=== PATIENT | female | born 1965 | race Caucasian/White ===

== ENCOUNTER 2019-09-24 09:24 | Emergency (ER) | payer OTHER ==
--- OUTSIDE RECORDS SUMMARY | 2019-09-24 09:26 | XMS REPORT ---
:1965 [facility] Address [address] [place] [address] Dr. Farnsworth [address] [place] [id number] Care Team Providers Name Role Phone Unavailable Unavailable Unavailable Problems This patient has no known problems. Allergies, Adverse Reactions, Alerts This patient has no known allergies or adverse reactions. Medications This patient has no known medications.
--- NOTE | 2019-09-24 09:57 | ER ---
Nurse's Notes [facility] Name: Adrianne Recinos Age: 54 yrs Sex: Female : 1965 Arrival Date: 09/24/2019 Time: 09:27 Bed 17 Private MD: Diagnosis: Pain in left knee Presentation: 09/24 09:39 Presenting complaint: Patient states: Intermittent left knee pain x 1 year, worsening jl7 on Sunday. Transition of care: patient was not received from another setting of care. Onset of symptoms was September 2018. Risk Assessment: Do you want to hurt yourself or someone else? Patient reports no desire to harm self or others. Initial Sepsis Screen: Does the patient meet any 2 criteria? No. Patient's initial sepsis screen is negative. Does the patient have a suspected source of infection? No. Patient's initial sepsis screen is negative. Care prior to arrival: None. 09:39 Method Of Arrival: Ambulatory jl7 09:39 Acuity: MODESTA 4 jl7 Triage Assessment: 09:43 General: Appears in no apparent distress. uncomfortable, Behavior is calm, cooperative, jl7 appropriate for age. Pain: Complains of pain in left knee Pain currently is 7 out of 10 on a pain scale. Neuro: Level of Consciousness is awake, alert, obeys commands, Oriented to person, place, time, situation. Cardiovascular: Patient's skin is warm and dry. Respiratory: Airway is patent Respiratory effort is even, unlabored, Respiratory pattern is regular, symmetrical. Derm: Skin is pink, warm \T\ dry. Historical: - Allergies: 09:43 No Known Allergies; jl7 - Home Meds: 09:43 glimepiride 2 mg Oral tab [Active]; Metformin Oral [Active]; cyclobenzaprine 10 mg Oral jl7 tab [Active]; sulindac 200 mg Oral tab [Active]; bisoprolol-hydrochlorothiazide 5-6.25 mg oral tab [Active]; quetiapine 300 mg oral tab [Active]; gabapentin 400 mg oral cap [Active]; Viibryd 20 mg oral tab [Active]; - PMHx: 09:43 Depression; Mood disorder; Diabetes - NIDDM; Hypertension; neuropathy; Arthritis; Back jl7 pain; - PSHx: 09:43 Hysterectomy; jl7 - Immunization history:: Adult Immunizations unknown. - Coronavirus screen:: The patient has NOT traveled to [place] in the past 14 days. Proceed with normal triage process as indicated. - Social history:: Smoking status: Patient reports the use of cigarette tobacco products, denies chronic smoking, but will smoke occasionally. - Ebola Screening: : No symptoms or risks identified at this time. Screenin:46 Abuse screen: Denies threats or abuse. Denies injuries from another. Nutritional jl7 screening: No deficits noted. Tuberculosis screening: No symptoms or risk factors identified. Fall Risk None identified. Assessment: 09:46 General: See triage assessment. jl7 Vital Signs: 09:43 BP 150 / 93; Pulse 82; Resp 17 S; Temp 97.8; Pulse Ox 98% ; Weight 68.04 kg (R); Height jl7 5 ft. 4 in. (162.56 cm) (R); Pain 7/10; 09:43 Body Mass Index 25.75 (68.04 kg, 162.56 cm) jl7 ED Course: 09:27 Patient arrived in ED. fj1 09:28 Jordyn Villeda FNP-C is [facility]. kb 09:28 Arcadio Coe MD is Attending Physician. kb 09:38 Ethan Pineda, SALLIE is Primary Nurse. jl7 09:40 Triage completed. jl7 09:43 Arm band placed on right wrist. jl7 09:46 Patient has correct armband on for positive identification. Placed in gown. Bed in low jl7 position. Call light in reach. Side rails up X 1. 10:18 No provider procedures requiring assistance completed. Patient did not have IV access iw during this emergency room visit. Administered Medications: No medications were administered Outcome: 09:56 Discharge ordered by MD. kb 10:17 Discharged to home ambulatory. iw 10:17 Condition: good 10:17 Discharge instructions given to patient, Instructed on discharge instructions, follow up and referral plans. Demonstrated understanding of instructions, follow-up care. 10:18 Patient left the ED. iw Signatures: Jordyn Villeda FNP-C FNP-Iva Robert RN RN iw Ethan Pineda RN RN jl7 James, Frank fj
--- NOTE | 2019-09-24 09:58 | EDPHYS ---
Physician Documentation [facility] Name: Adrianne Recinos Age: 54 yrs Sex: Female : 1965 Arrival Date: 09/24/2019 Time: 09:27 Bed 17 Private MD: ED Physician Arcadio Coe HPI: 09/24 10:03 This 54 yrs old Female presents to ER via Ambulatory with complaints of Knee kb Pain. 10:03 The patient presents with pain, that is chronic. The complaints affect the left knee. kb Context: The problem was sustained at work, resulted from a chronic condition, the patient can fully bear weight, the patient is able to ambulate. Onset: The symptoms/episode began/occurred "years ago". Modifying factors: The symptoms are alleviated by nothing. the symptoms are aggravated by nothing. Associated signs and symptoms: The patient has no apparent associated signs or symptoms. Treatment prior to arrival includes: no previous treatment. Severity of symptoms: At their worst the symptoms were mild, in the emergency department the symptoms are unchanged. The patient has experienced similar episodes in the past, chronically. The patient has not recently seen a physician. Pt reports left knee pain that has been gradually getting worse over the last few years. States the pain increases when she twists and sometimes it feels like it locks up or is going to give out. . Historical: - Allergies: : No Known Allergies; jl7 - Home Meds: :43 glimepiride 2 mg Oral tab [Active]; Metformin Oral [Active]; cyclobenzaprine 10 mg Oral jl7 tab [Active]; sulindac 200 mg Oral tab [Active]; bisoprolol-hydrochlorothiazide 5-6.25 mg oral tab [Active]; quetiapine 300 mg oral tab [Active]; gabapentin 400 mg oral cap [Active]; Viibryd 20 mg oral tab [Active]; - PMHx: 09:43 Depression; Mood disorder; Diabetes - NIDDM; Hypertension; neuropathy; Arthritis; Back jl7 pain; - PSHx: 09:43 Hysterectomy; jl7 - Immunization history:: Adult Immunizations unknown. - Coronavirus screen:: The patient has NOT traveled to [place] in the past 14 days. Proceed with normal triage process as indicated. - Social history:: Smoking status: Patient reports the use of cigarette tobacco products, denies chronic smoking, but will smoke occasionally. - Ebola Screening: : No symptoms or risks identified at this time. ROS: 10:03 Constitutional: Negative for fever, chills, and weight loss, ENT: Negative for injury, kb pain, and discharge, Neck: Negative for injury, pain, and swelling, Cardiovascular: Negative for chest pain, palpitations, and edema, Respiratory: Negative for shortness of breath, cough, wheezing, and pleuritic chest pain, Abdomen/GI: Negative for abdominal pain, nausea, vomiting, diarrhea, and constipation, Back: Negative for injury and pain, Skin: Negative for injury, rash, and discoloration, Neuro: Negative for headache, weakness, numbness, tingling, and seizure. 10:03 MS/extremity: Positive for pain. Exam: 10:02 Constitutional: This is a well developed, well nourished patient who is awake, alert, kb and in no acute distress. Head/Face: Normocephalic, atraumatic. Chest/axilla: Normal chest wall appearance and motion. Nontender with no deformity. No lesions are appreciated. Cardiovascular: Regular rate and rhythm with a normal S1 and S2. No gallops, murmurs, or rubs. Normal PMI, no JVD. No pulse deficits. Respiratory: Lungs have equal breath sounds bilaterally, clear to auscultation and percussion. No rales, rhonchi or wheezes noted. No increased work of breathing, no retractions or nasal flaring. Abdomen/GI: Soft, non-tender, with normal bowel sounds. No distension or tympany. No guarding or rebound. No evidence of tenderness throughout. Skin: Warm, dry with normal turgor. Normal color with no rashes, no lesions, and no evidence of cellulitis. Neuro: Awake and alert, GCS 15, oriented to person, place, time, and situation. Cranial nerves II-XII grossly intact. Motor strength 5/5 in all extremities. Sensory grossly intact. Cerebellar exam normal. Normal gait. 10:02 Musculoskeletal/extremity: Extremities: grossly normal except: noted in the left knee: pain, ROM: intact in all extremities, Circulation is intact in all extremities. Sensation intact. Weight bearing: able to fully bear weight. Vital Signs: 09:43 BP 150 / 93; Pulse 82; Resp 17 S; Temp 97.8; Pulse Ox 98% ; Weight 68.04 kg (R); Height jl7 5 ft. 4 in. (162.56 cm) (R); Pain 02/12; 09:43 Body Mass Index 25.75 (68.04 kg, 162.56 cm) jl7 MDM: 09:30 Patient medically screened. kb 09:57 Differential diagnosis: sprain, strain, arthritis. Data reviewed: vital signs, nurses kb notes. Data interpreted: Pulse oximetry: on room air is 98 %. Interpretation: normal. Counseling: I had a detailed discussion with the patient and/or guardian regarding: the historical points, exam findings, and any diagnostic results supporting the discharge/admit diagnosis, the need for outpatient follow up, a orthopedic surgeon, to return to the emergency department if symptoms worsen or persist or if there are any questions or concerns that arise at home. Administered Medications: No medications were administered Disposition: 10:32 Co-signature as Attending Physician, Arcadio Coe MD. rn Disposition: 09/24/19 09:56 Discharged to Home. Impression: Pain in left knee. - Condition is Stable. - Discharge Instructions: Arthritis, [id number], Knee Pain, [id number]-[id number]. - Medication Reconciliation Form, Thank You Letter, Antibiotic Education, Prescription Opioid Use form. - Follow up: Emergency Department; When: As needed; Reason: Worsening of condition. Follow up: Private Physician; When: 2 - 3 days; Reason: Recheck today's complaints, Continuance of care, Re-evaluation by your physician. Signatures: Jordyn Villeda, [employer]ER [employer]-C C[employer]-Ckb Iva Glass RN RN iw Nieto, Roman, MD MD rn Leal, Jahala, RN RN jl7 Corrections: (The following items were deleted from the chart) 10:18 09:56 09/24/2019 09:56 Discharged to Home. Impression: Pain in left knee. Condition is iw Stable. Forms are Medication Reconciliation Form, Thank You Letter, Antibiotic Education, Prescription Opioid Use. Follow up: Emergency Department; When: As needed; Reason: Worsening of condition. Follow up: Private Physician; When: 2 - 3 days; Reason: Recheck today's complaints, Continuance of care, Re-evaluation by your physician. kb
[2019-09-24 10:26] VITALS: BP 150/93; TEMP 97.8; O2SAT 98
== END 2019-09-24 10:18 | disposition home or self-care (01) ==
LOC: ER 09:24
DX: M25.562 Pain in left knee (principal); F17.210 Nicotine dependence, cigarettes, uncomplicated; E11.9 Type 2 diabetes mellitus without complications
CPT/HCPCS: 99281

== ENCOUNTER 2021-09-06 13:00 | Emergency (ER) | payer BC, OTHER ==
[2021-09-06 13:39] LABS: Urine Blood Trace-intact (Negative); Urine Glucose 2+ (Negative); Urine Protein 2+ (Negative); Urine Specific Gravity >=1.030 (1.005-1.030)
[2021-09-06] MEDS ORDERED: ONDANSETRON 4 MG/2 ML VIAL ONE (13:46)
[2021-09-06] MEDS ORDERED: PANTOPRAZOLE 40 MG INJ ONE (13:46)
[2021-09-06] MEDS ORDERED: MAGNES/ALUMIN/SIMET 30ML UCUP ONE (13:46)
[2021-09-06] MEDS ORDERED: LIDOCAINE VISCOUS 2% SOLN 15 ML UDC ONE (13:47)
[2021-09-06] MEDS ORDERED: NA CHLORIDE 0.9% 1,000 ML ONE (13:47)
[2021-09-06 14:07] LABS: Absolute Lymphocytes (CBC) 0.3 K/uL (0.7-4.9); Hematocrit 36.1 % (36.0-45.0); Lymphocytes % 2.1 % (15.3-44.8); MPV 8.2 fL (7.6-11.3); RBC Red Blood Cell Count 4.13 M/uL (3.86-4.86)
[2021-09-06 14:25] LABS: ALT/SGPT 19 U/L (12-78); AST/SGOT 12 U/L (15-37); Albumin 3.8 g/dL (3.4-5.0); Alkaline Phosphatase 76 U/L (45-117); BUN Blood Urea Nitrogen 31 mg/dL (7-18); Bicarbonate 23 mmol/L (21-32); Bilirubin Direct < 0.1 mg/dL (0-0.2); Bilirubin Total 0.4 mg/dL (0.2-1.0); Glucose Level 243 mg/dL (74-106); Lipase 76 U/L (73-393); Potassium 3.2 mmol/L (3.5-5.1); Protein, Total 7.9 g/dL (6.4-8.2); Sodium Level 128 mmol/L (136-145)
[2021-09-06 15:00] LABS: Urine Bacteria <20 /HPF (<20); Urine Mucus 1+ /HPF (NONE SEEN); Urine RBC <5 /HPF (NONE SEEN)
[2021-09-06 15:13] LABS: SARS-COV-2 RT PCR POSITIVE (NEGATIVE)
--- NOTE | 2021-09-06 15:21 | RAD REPORT ---
EXAM DESCRIPTION: CT - Abdomen Pelvis Wo Contrast - 09/06/2021 3:12 pm CLINICAL HISTORY: Abdominal pain. Abd pain;Nausea / vomiting COMPARISON: No comparisons TECHNIQUE: CT imaging of the abdomen and pelvis was performed without contrast. Solid organ, bowel a nd vascular assessment is limited due to lack of IV and oral contrast. All CT scans are performed using dose optimization technique as appropriate and may include automated exposure control or mA/KV adjustment according to patient size. FINDINGS: 2.5 cm vague opacity is present in the medial left lower lobe with ground-glass attenuatio n. 6 mm ground-glass nodule is seen in the lateral right lower lobe. The liver, spleen, adrenal glands and kidneys are within normal limits for a limited non-contrast exa mination.Mildly edematous appearance to the pancreatic head and uncinate process seen. No bowel obstruction, free air, free fluid or abscess. The appendix is normal. Posterior disc bulge is present with minimal anterolisthesis L3 on L4. IMPRESSION: There is a subtle edematous appearance to the pancreas which could indicate mild pancrea titis. Recommend correlation with amylase and lipase levels. Mild nonspecific basilar lung opacities, greater on the left. Mild infection is possible however bernadette mmend follow-up CT chest in 3-6 months for further evaluation. A limited non-contrast examination was performed as detailed.
--- NOTE | 2021-09-06 16:17 | ER ---
Nurse's Notes [facility] Name: Adrianne Recinos Age: 56 yrs Sex: Female : 1965 Arrival Date: 09/06/2021 Time: 13:02 Bed 14 Private MD: Miguel Overton T Diagnosis: SARS-associated coronavirus as the cause of diseases classified elsewhere;Dehydration;Vomiting, unspecified Presentation: 09/06 13:08 Chief complaint: Patient states: I hurt my back at work - I was given naproxen. ld1 Developed facial swelling and N/V X 3 days. Pt reporting upper abdominal pain - shaky. Unable to hold down food or water. Dr. Overton reports pt having a reaction to naproxen and gabapentin. Coronavirus screen: At this time, the client does not indicate any symptoms associated with coronavirus-19. Ebola Screen: No symptoms or risks identified at this time. Initial Sepsis Screen: Does the patient meet any 2 criteria? No. Patient's initial sepsis screen is negative. Does the patient have a suspected source of infection? No. Patient's initial sepsis screen is negative. Risk Assessment: Do you want to hurt yourself or someone else? Patient reports no desire to harm self or others. Onset of symptoms was September 06, 2021 at 13:10. 13:08 Method Of Arrival: Wheelchair ld1 13:08 Acuity: MODESTA 3 ld1 Triage Assessment: 13:10 General: Appears in no apparent distress. uncomfortable, Behavior is cooperative, ld1 appropriate for age, anxious. Pain: Complains of pain in right upper quadrant and left upper quadrant Pain does not radiate. Pain currently is 9 out of 10 on a pain scale. Quality of pain is described as burning, Pain began gradually, Is continuous. Neuro: Level of Consciousness is awake, alert, obeys commands, Oriented to person, place, time, situation. Respiratory: Airway is patent Respiratory effort is even, unlabored, Respiratory pattern is regular, symmetrical. GI: Abdomen is flat, non-distended, Reports upper abdominal pain, nausea, vomiting. Historical: - Allergies: 13:10 No Known Allergies; ld1 - PMHx: 13:10 Arthritis; Back pain; Diabetes - NIDDM; Hypertension; Depression; mood disorder; ld1 neuropathy; - PSHx: 13:10 hysterectomy; ld1 - Immunization history:: Adult Immunizations up to date, Client reports having NOT received the Covid vaccine. - Social history:: Smoking status: Patient reports the use of cigarette tobacco products, smokes one-half pack cigarettes per day, Patient/guardian denies using alcohol. - Family history:: not pertinent. - Hospitalizations: : No recent hospitalization is reported. Screenin:10 Abuse screen: Denies threats or abuse. Denies injuries from another. Nutritional bp screening: No deficits noted. Tuberculosis screening: No symptoms or risk factors identified. Fall Risk None identified. Assessment: 13:10 General: SEE TRIAGE NOTE. bp 13:57 Reassessment: No changes from previously documented assessment. Patient and/or family bp updated on plan of care and expected duration. Pain level reassessed. 16:21 GI: Abd is soft and non tender Abd is non tender. ld1 Vital Signs: 13:08 BP 148 / 84; Pulse 100; Resp 20; Temp 98.6(O); Pulse Ox 100% on R/A; Weight 61.23 kg; ld1 Height 5 ft. 4 in. (162.56 cm); Pain 9/10; 13:56 BP 186 / 91; Pulse 94; Resp 16; Pulse Ox 100% ; bp 13:08 Body Mass Index 23.17 (61.23 kg, 162.56 cm) ld1 ED Course: 13:02 Patient arrived in ED. am2 13:02 Miguel Overton MD is Private Physician. am2 13:10 Triage completed. ld1 13:10 Arm band placed on right wrist. ld1 13:10 Patient has correct armband on for positive identification. Bed in low position. Call bp light in reach. Side rails up X2. Adult w/ patient. 13:14 Arcadio Coe MD is Attending Physician. rn 13:18 Loco Padgett, SALLIE is Primary Nurse. bp 13:45 Inserted saline lock: 20 gauge in left antecubital area, using aseptic technique. Blood bp collected. 15:12 Abdomen In Process Unspecified. EDMS 16:21 No provider procedures requiring assistance completed. IV discontinued, intact, ld1 bleeding controlled, No redness/swelling at site. 17:04 XRAY Chest (1 view) In Process Unspecified. EDMS Administered Medications: 13:55 Drug: NS 0.9% 1000 ml Route: IV; Rate: 1000 ml; Site: left antecubital; bp 13:55 Drug: Zofran (Ondansetron) 4 mg Route: IVP; Site: left antecubital; bp 13:55 Drug: GI Cocktail without - (Maalox Suspension 30 ml, Lidocaine Liquid 2 % 15 bp ml) Route: PO; 13:55 Drug: ProTONIX (pantoprazole) 40 mg Route: IVP; Site: left antecubital; bp Outcome: 16:16 Discharge ordered by . rn 16:21 Discharged to home ambulatory. ld1 16:21 Condition: stable 16:21 Discharge instructions given to patient, Instructed on discharge instructions, follow up and referral plans. Demonstrated understanding of instructions, follow-up care. 16:22 Patient left the ED. ld1 Signatures: Dispatcher [employer] EDMS Arcadio Coe MD MD rn Moreno, Amanda am2 Peltier, Brian, RN RN Amanda Frazier RN RN ld1 Corrections: (The following items were deleted from the chart) 13:11 13:10 Allergies: Naproxen; ld1 ld1 13:11 13:10 PSHx: None; ld1 ld1
--- NOTE | 2021-09-06 16:17 | EDPHYS ---
Physician Documentation [facility] Name: Adrianne Recinos Age: 56 yrs Sex: Female : 1965 Arrival Date: 09/06/2021 Time: 13:02 Bed 14 Private MD: Miguel Overton T ED Physician Arcadio Coe HPI: 09/06 15:14 This 56 yrs old Female presents to ER via Wheelchair with complaints of rn Abdominal Pain, Nausea/Vomiting, shaky. 15:14 The patient presents to the emergency department with nausea, vomiting, abdominal pain. rn Onset: The symptoms/episode began/occurred 3 day(s) ago. Possible causes: unknown. The symptoms are aggravated by food , The symptoms are alleviated by nothing. Severity of symptoms: At their worst the symptoms were moderate in the emergency department the symptoms are unchanged. The patient has not experienced similar symptoms in the past. The patient has been recently seen by a physician:. Patient reports has been taking naproxen for the last week after a back injury at work. Now has 3 days of nausea/vomiting/upper abdominal pain. States cannot keep anything down. No diarrhea. Does report subjective fever with cough and congestion as well. No blood in stool. No dark stool. No hematemesis.. Historical: - Allergies: 13:10 No Known Allergies; ld1 - PMHx: 13:10 Arthritis; Back pain; Diabetes - NIDDM; Hypertension; Depression; mood disorder; ld1 neuropathy; - PSHx: 13:10 hysterectomy; ld1 - Immunization history:: Adult Immunizations up to date, Client reports having NOT received the Covid vaccine. - Social history:: Smoking status: Patient reports the use of cigarette tobacco products, smokes one-half pack cigarettes per day, Patient/guardian denies using alcohol. - Family history:: not pertinent. - Hospitalizations: : No recent hospitalization is reported. ROS: 15:14 Constitutional: Positive for fever Eyes: Negative for injury, pain, redness, and pattern changer, ENT: Positive for congestion and sore throat Neck: Negative for injury, pain, and swelling, Cardiovascular: Negative for chest pain, palpitations, and edema, Respiratory: Positive for cough, negative for shortness of breath Abdomen/GI: Positive for abdominal pain/nausea/vomiting/diarrhea : Negative for injury, bleeding, discharge, and swelling, MS/Extremity: Negative for injury and deformity, Skin: Negative for injury, rash, and discoloration, Neuro: Negative for headache, numbness, tingling, and seizure. Exam: 15:14 Constitutional: This is a well developed, well nourished patient who is awake, alert, rn and in no acute distress. Head/Face: Normocephalic, atraumatic. Eyes: Pupils equal round and reactive to light, extra-ocular motions intact. Lids and lashes normal. Conjunctiva and sclera are non-icteric and not injected. Cornea within normal limits. Periorbital areas with no swelling, redness, or edema. ENT: Dry mucous membranes Cardiovascular: Regular rate and rhythm. No pulse deficits. Respiratory: No increased work of breathing, no retractions or nasal flaring. Abdomen/GI: Soft, mild epigastric tenderness, no rebound, negative Hayden Skin: Warm, dry MS/ Extremity: Pulses equal, no cyanosis. Neuro: Awake and alert, GCS 15 Vital Signs: 13:08 BP 148 / 84; Pulse 100; Resp 20; Temp 98.6(O); Pulse Ox 100% on R/A; Weight 61.23 kg; ld1 Height 5 ft. 4 in. (162.56 cm); Pain 9/10; 13:56 BP 186 / 91; Pulse 94; Resp 16; Pulse Ox 100% ; bp 13:08 Body Mass Index 23.17 (61.23 kg, 162.56 cm) ld1 MDM: 13:14 Patient medically screened. rn 16:14 Differential diagnosis: Nonspecific abd pain, gastritis, viral gastroenteritis, rn gastroenteritis, COVID, Flu, viral syndrome. Data reviewed: vital signs, nurses notes, lab test result(s), radiologic studies, CT scan, plain films, and as a result, I will discharge patient. Counseling: I had a detailed discussion with the patient and/or guardian regarding: the historical points, exam findings, and any diagnostic results supporting the discharge/admit diagnosis, lab results, radiology results, the need for outpatient follow up, to return to the emergency department if symptoms worsen or persist or if there are any questions or concerns that arise at home. Response to treatment: the patient's symptoms have markedly improved after treatment, and as a result, I will discharge patient. Special discussion: I discussed with the patient/guardian in detail that at this point there is no indication for admission to the hospital. It is understood, however, that if the symptoms persist or worsen the patient needs to return immediately for re-evaluation. ED course: Patient markedly improved, no vomiting, tolerating p.o. Covid positive with negative CAT scan of abdomen. No oxygen requirement. Mild Covid pneumonia on x-ray. Only 3 days into it, will discharge with return precautions.. 16:16 ED course: Pt has standing zofran prescription. . rn 09/06 13:35 Order name: Basic Metabolic Panel; Complete Time: 15:23 rn 09/06 13:35 Order name: CBC with Diff rn 09/06 13:35 Order name: Hepatic Function; Complete Time: 15:23 rn 09/06 13:35 Order name: Lipase; Complete Time: 15:23 rn 09/06 13:35 Order name: COVID-19/FLU A+B (Document "Date of Onset" if Symptomatic); Complete Time: rn 15:23 09/06 13:52 Order name: Urine Dipstick-Ancillary; Complete Time: 15:23 EDME 09/06 13:52 Order name: Urine Microscopic Only; Complete Time: 15:23 EDME 09/06 14:57 Order name: Abdomen ; Complete Time: 15:23 EDME 09/06 15:01 Order name: Urine Culture [facility] 09/06 15:24 Order name: XRAY Chest (1 view) rn 09/06 13:35 Order name: IV Saline Lock; Complete Time: 13:37 rn 09/06 13:35 Order name: Labs collected and sent; Complete Time: 13:37 rn Administered Medications: 13:55 Drug: NS 0.9% 1000 ml Route: IV; Rate: 1000 ml; Site: left antecubital; bp 13:55 Drug: Zofran (Ondansetron) 4 mg Route: IVP; Site: left antecubital; bp 13:55 Drug: GI Cocktail without - (Maalox Suspension 30 ml, Lidocaine Liquid 2 % 15 bp ml) Route: PO; 13:55 Drug: ProTONIX (pantoprazole) 40 mg Route: IVP; Site: left antecubital; bp Disposition Summary: 09/06/21 16:16 Discharge Ordered Location: Home rn Problem: new rn Symptoms: have improved rn Condition: Stable rn Diagnosis - SARS-associated coronavirus as the cause of diseases classified elsewhere rn - Dehydration rn - Vomiting, unspecified rn Followup: rn - With: Private Physician - When: As needed - Reason: Recheck today's complaints, Re-evaluation by your physician Discharge Instructions: - Discharge Summary Sheet rn - Nausea and Vomiting, Adult rn - COVID-19 rn - 10 Things You Can Do to Manage Your COVID-19 Symptoms at Home - [facility] rn - Viral Illness, Adult rn Forms: - Medication Reconciliation Form rn - Thank You Letter rn - Antibiotic pattern keeper - Prescription Opioid Use rn Signatures: Dispatcher [employer] EDMS Arcadio Coe MD MD rn Peltier, Brian RN RN Amanda Alvarado RN RN ld1 Corrections: (The following items were deleted from the chart) 13:11 13:10 Allergies: Naproxen; ld1 ld1 13:11 13:10 PSHx: None; ld1 ld1 14:57 13:53 Abdomen Pelvis W Con+CT.RAD.BRZ ordered. EDMS EDMS
--- NOTE | 2021-09-06 16:32 | RAD REPORT ---
EXAM DESCRIPTION: RAD - Chest Single View - 09/06/2021 4:22 pm CLINICAL HISTORY: COUGH Chest pain. COMPARISON: No comparisons FINDINGS: Portable technique limits examination quality. The lungs are grossly clear. The heart is normal in size. No displaced fractures. IMPRESSION: No acute intrathoracic process suspected.
[2021-09-06 17:51] VITALS: BP 148/84; TEMP 98.6; O2SAT 100
[2021-09-06 19:44] LABS: Blood Morphology Comment NOT SEEN (NOT SEEN); Platelet Estimate ADEQ; White Blood Cell Scan OK (OK)
== END 2021-09-06 16:22 | disposition home or self-care (01) ==
LOC: ER 13:00
DX: U07.1 COVID-19 (principal); E86.0 Dehydration; I10 Essential (primary) hypertension; F17.210 Nicotine dependence, cigarettes, uncomplicated
CPT/HCPCS: 87088; 85025; 87086; 80048; 36415; 80076; 83690; 0240U; 74176; 71045; 96375; 96374; 99284; C9113; J7030; J2405; 81003; 81015

== ENCOUNTER 2024-06-29 10:35 | Emergency (ER) | payer OTHER ==
--- OUTSIDE RECORDS SUMMARY | 2024-06-29 10:37 | XMS REPORT | Continuity of Care Document ---
Author Name Unknown Address [address] [facility] [address] [place] [address] [facility] Address [address] [facility] [place] [address] Care Team Providers Care Process Server Name Role Phone FRANCINE ROBLEDO Primary Care Physician Unav REMA Leblanc Attending Clinician Unavailable Rd Slade MD Attending Clinician [phone] Margareth Miller Attending Clinician [phone] Alli Mirza MD Attending Clinician [phone] [address] SLADE Attending Clinician Unavail able RD SLADE Attending Clinician Unavail able [id number]_S Attending Clinician Unavaila ble Doctor Unassigned, [place] Attending Clinician [facility] Room 1 - Attending Clinician Un available Dyllan RODRIGUEZ, Elvis Pressley Attending Clinician [phone] [email or web address] Admitting Clinician Unavaila ble Payers Payer Name Policy Type Policy Number Effective Date Expirati on Date Source [place] [employer] [id number] 2024 00:00:00 Problems Condition Name Condition Details Condition Category Status Onset Date Resolution Date Last Treatment Date Treating Clinician Comments Source No known active problems No known active problems Disease [facility] Allergies, Adverse Reactions, Alerts Allergy Name Allergy Type Status Severity Reaction(s) Onset Date Inactive Date Treating Clinician Comments Source NO KNOWN ALLERGIE S Drug Class Active [facility] Social History Social Habit Start Date Stop Date Quantity Comments Source [facility] Alcohol Frequency [facility] History SDOH Alcohol Std Drinks [facility] History SDOH Alcohol Binge [facility] Alcohol intake 2023-07-12 00:00:00 2023-07-12 00:00:00 Current non-drinker of alcohol (finding) [facility] Tobacco use and exposure 2023-06-19 00:00:00 2023-06-19 00:00:00 Smokeless tobacco non-user [facility] History of Social function 2023-06-19 00:00:00 2023-06-19 00:00:00 [facility] Exposure to SARS-CoV-2 (event) 2022-06-09 00:00:00 2022-06-19 10:21:00 Not sure [facility] Alcohol Comment 2018-09-24 00:00:00 2018-09-24 00:00:00 occaisonal [facility] Sex Ass[birth year] At 1965 00:00:00 1965 00:00:00 [facility] Smoking Status Start Date Stop Date Source Never smoked tobacco [facility] Medications Ordered Medication Name Filled Medication Name Start Date Stop Date Current Medication? Ordering Clinician Indication Dosage Frequency Signature (SIG) Comments Components Source gabapentin 400 mg capsule 08-10 00:00: 00 Yes [id number] TAKE ONE (1) CAPSULE(S) BY MOUTH THREE TIMES A DAY (MORNING, NOON, AND EVENING). [facility] nebivoloL 5 mg tablet 2022-08 14:52: 58 Yes 5mg Take 1 tablet by mouth in the morning. [facility] vilazodone 20 mg 2022-08 14:52: 11 07-12 00:00 :00 No 20mg Take 20 mg by mouth daily. [facility] NOVOLIN 70/30 U-100 INSULIN 100 unit/mL (70-30) suspension 2022-08 00:00: 00 Yes INJECT 20 UNIT UNDER THE SKIN EVERY MORNING AND 10 UNITS IN THE EVENING. [facility] gabapentin 400 mg capsule 2021-08 00:00: 00 08-10 00:00 :00 No [id number] 400mg Take 1 capsule by mouth in the morning and 1 capsule at noon and 1 capsule in the evening. [facility] clonazePAM 0.5 mg disintegrat ing tablet 2021-08 0-25 00:00: 00 07-12 00:00 :00 No TAKE ONE (1) TABLET(S) BY MOUTH DAILY NEEDED. [facility] QUEtiapine 300 mg tablet 9-28 00:00: 00 Yes TAKE ONE (1) TABLET(S) BY MOUTH ONCE A DAY IN THE EVENING. [facility] gabapentin 400 mg capsule 2020-08 2- 00:00: 00 06-19 00:00 :00 No [id number] 400mg Take 1 capsule by mouth 3 (three) times daily. [facility] gabapentin 400 mg capsule 2020-08 00:00: 00 Yes [id number] 400mg Take 1 capsule by mouth 3 (three) times daily. [facility] gabapentin 400 mg capsule 2020-08 0 00:00: 00 06-20 00:00 :00 No [id number] 400mg Take 1 capsule by mouth 3 (three) times daily. [facility] vilazodone 20 mg 09-24 13:05: 23 Yes 20mg Take 20 mg by mouth daily. [facility] glimepiride 2 mg tablet 02-25 00:00: 00 07-12 00:00 :00 No [facility] metformin ER 750 mg 24 hr tablet 02-24 00:00: 00 Yes [facility] atorvastati n 80 mg tablet 02-21 00:00: 00 07-12 00:00 :00 No [facility] bisoprolol- hydrochloro thiazide 5-6.25 mg per tablet 02-05 00:00: 00 07-12 00:00 :00 No [facility] sulindac 200 mg tablet 01-17 00:00: 00 07-12 00:00 :00 No [facility] cyclobenzap rine 10 mg tablet 01-05 00:00: 00 Yes [facility] Vital Signs Vital Name Observation Time Observation Value Comments Bren null Systolic blood pressure 2023-07-12 20:56:00 179 mm[Hg] [facility] Diastolic blood pressure 2023-07-12 20:56:00 95 mm[Hg] [facility] Heart rate 2023-07-12 20:53:00 72 /min Unive [facility] Body height 2023-07-12 20:53:00 162.6 cm [facility] Body weight 2023-07-12 20:53:00 63.458 kg [facility] BMI 2023-07-12 20:53:00 24.01 kg/m2 [facility] Oxygen saturation in Arterial blood by Pulse oximetry 2023-07-12 20:53:00 99 /min [facility] Systolic blood pressure 2023-06-19 15:03:00 196 mm[Hg] [facility] Diastolic blood pressure 2023-06-19 15:03:00 101 mm[Hg] [facility] Heart rate 2023-06-19 14:51:00 95 /min Unive [facility] Body height 2023-06-19 14:51:00 162.6 cm [facility] Body weight 2023-06-19 14:51:00 61.508 kg [facility] BMI 2023-06-19 14:51:00 23.28 kg/m2 [facility] Systolic blood pressure 2022-06-19 16:39:00 190 mm[Hg] [facility] Diastolic blood pressure 2022-06-19 16:39:00 98 mm[Hg] [facility] Heart rate 2022-06-19 16:38:00 90 /min Unive [facility] Body height 2022-06-19 16:38:00 162.6 cm [facility] Body weight 2022-06-19 16:38:00 66.225 kg [facility] BMI 2022-06-19 16:38:00 25.06 kg/m2 [facility] Oxygen saturation in Arterial blood by Pulse oximetry 2022-06-19 16:38:00 99 /min [facility] Systolic blood pressure 2021-06-20 15:26:00 169 mm[Hg] [facility] Diastolic blood pressure 2021-06-20 15:26:00 105 mm[Hg] [facility] Heart rate 2021-06-20 15:24:00 89 /min [facility] 2021-06-20 15:24:00 17 /min [facility] Body weight 2021-06-20 15:24:00 62.681 kg [facility] BMI 2021-06-20 15:24:00 23.72 kg/m2 [facility] Oxygen saturation in Arterial blood by Pulse oximetry 2021-06-20 15:24:00 100 /min [facility] Procedures Procedure Date / Time Performed Performing Clinicia n Source ASSIGNMENT OF BENEFITS 2022-06-19 16:22:35 Docto r Unassigned, [place] [facility] Encounters Start Date/Time End Date/Time Encounter Type Admission Type Attending Clinicians Care Facility Care Department Encounter ID Source 2024-05-13 09:20:00 2024-05-13 09:20:00 Outpatient REMA [facility]AN [facility] [id number] [facility] 2023-08-13 00:00:00 2023-08-13 00:00:00 Refill [place] [facility] 1.2.840.114 350.1.13.10 4.2.7.2.686 [id number] [facility] 2023-08-10 00:00:00 2023-08-10 00:00:00 Latosha Slade [facility] 1.2.840.114 350.1.13.10 4.2.7.2.686 [id number] [facility] 2023-08-05 00:00:00 2023-08-05 00:00:00 Aster Tylerica [facility] 1..840.114 350.1.13.10 4.2.7.2.686 [id number] [facility] 2023-07-27 00:00:00 2023-07-27 00:00:[address] [facility] 1..840.114 350.1.13.10 4.2.7.2.686 [id number] [facility] 2023-07-26 16:45:00 2023-07-26 16:45:00 Outpatient ALLI AVALOS [facility] [id number] [facility] 2023-07-25 00:00:00 2023-07-25 00:00:00 Outpatient ALLI AVALOS [facility] [id number] [facility] 2023-07-23 15:00:00 2023-07-23 15:00:00 Outpatient ALLI AVALOS [facility] [id number] [facility] 2023-07-12 15:00:00 2023-07-12 15:28:09 Outpatient ALLI AVALOS [facility] [id number] [facility] 2023-07-12 15:00:00 2023-07-12 15:28:09 Office Visit Alli Mirza [facility] 1..840.114 350.1.13.10 4.2.7.2.686 [id number] [facility] 2023-06-19 09:20:00 2023-06-19 09:41:[address] SNELL [facility] [id number] [facility] 2023-06-19 09:20:00 2023-06-19 09:41:42 Office Visit [place], [facility] 1..840.114 350.1.13.10 4.2.7.2.686 [id number] [facility] 2023-06-03 00:00:00 2023-06-03 00:00:00 Outpatient [email or web address]_Ka diyala_S [facility] [id number] [facility] 2022-06-19 10:40:00 2022-06-19 11:26:[address] SNELL [facility] [id number] [facility] 2022-06-19 10:40:00 2022-06-19 11:26:09 [facility] 1.840.114 350.1.13.10 4.2.7.2.686 [id number] [facility] 2022-06-19 00:00:00 2022-06-19 00:00:00 Orders Only Doctor Unassigned, [place] [facility] 1.840.114 350.1.13.10 4.2.7.2.686 [id number] [facility] 2021-08-23 00:00:00 2021-08-23 00:00:[address] [place] [address] [facility] 1..840.114 350.1.13.10 4.2.7.2.686 [id number] [facility] 2021-07-06 00:00:00 2021-07-06 00:00:[address] [facility] 1..840.114 350.1.13.10 4.2.7.2.686 [id number] [facility] 2021-06-22 00:00:00 2021-06-22 00:00:00 Refill [place], Rd [facility] TIFFANIE?[facility] 1.2.840.114 350.1.13.10 4.2.7.2.686 [id number] [facility] 2021-06-20 09:20:00 2021-06-20 09:51:[address] [facility] [id number] [facility] 2021-06-20 09:16:33 2021-06-20 09:51:[address] Slade Dayday [facility]FFANIE?[facility] 1.2.840.114 350.1.13.10 4.2.7.2.686 [id number] [facility] 2021-06-10 15:40:00 2021-06-10 15:40:[address] S[facility]LL [facility]ARD [facility] [id number] [facility] 2021-06-10 11:00:00 2021-06-10 11:00:[address] SNELL HOWARD [facility] [id number] [facility] 2021-06-10 00:00:00 2021-06-10 00:00:00 Orders Only Doctor Unassigned, [place] [facility] 1..840.114 350.1.13.10 4.2.7.2.686 [id number] [facility] 2021-05-23 00:00:00 2021-05-23 00:00:00 RefRd Lee [facility] nal Building 1..840.114 350.1.13.10 4.2.7.2.686 [id number] [facility] 2021-03-18 00:00:00 2021-03-18 00:00:00 Rd [facility] 1.2.840.114 350.1.13.10 4.2.7.2.686 [id number] [facility] 2020-12-17 00:00:00 2020-12-17 00:00:00 Rd Casey [facility] Building 1.2.840.114 350.1.13.10 4.2.7.2.686 [id number] [facility] 2020-09-13 00:00:00 2020-09-13 00:00:00 Rd Casey [facility] Building 1.2.840.114 350.1.13.10 4.2.7.2.686 [id number] [facility] 2020-03-24 00:00:00 2020-03-24 00:00:00 Rd Casey [facility] Building 1.2.840.114 350.1.13.10 4.2.7.2.686 [id number] [facility] 2020-02-27 07:58:16 2020-02-27 08:58:16 Emergency Services Dispatcher Visit Pc, [facility] Room 1 - Elvis Mijares [facility] Building 1.2.840.114 350.1.13.10 4.2.7.2.686 [id number] [facility] 2020-02-27 08:00:00 2020-02-27 08:00:00 Outpatient R [facility] [id number] [facility] 2020-02-13 13:00:00 2020-02-13 13:00:00 Outpatient R [facility] [id number] [facility] 2020-02-06 08:00:00 2020-02-06 08:00:00 Outpatient R [facility] [id number] [facility] 2020-01-20 15:30:47 2020-01-20 16:20:[address] Slade [facility] Nayan Kay [facility] 1.2.840.114 350.1.13.10 4.2.7.2.686 [id number] [facility] 2020-01-20 15:40:00 2020-01-20 15:40:[address] SNELL HOWARD [facility] [id number] [facility] Notes Date/Time Note Provider Source 2023-08-14 08:17:03 Attempted to complete PA per encounter on 08/10/23. Contacted Fany per Covermymeds instruction and spoke with Richard who stated there was a problem with the pharmacy but it has now been resolved and pt should be able to poultry picker the medication now. Refill was send on 08/10/23. Called and left VM updating pt that she should now be able to get the medication but if there was any more problems to give us a call back. Requested Prescriptions Refused Prescriptions Disp Refills gabapentin 400 mg capsule 270 capsule 2 Refused By: MATTHEW TRENT Reason for Refusal: Refill not appropriate [facility] 2023-08-13 09:31:02 Petros Recinos is a 58 year old female Pt is calling to get a refill on her gabapentin 400 mg capsule . Pt stated that the pharmacy reached out last week with no response. Pt is completely out of it since last week. [facility] 2023-08-10 16:49:19 Received PA Mckee: [id number] Placed in Providers box. Reid [facility] 2023-08-10 11:59:25 Requested Prescriptions Signed Prescriptions Disp Refills gabapentin 400 mg capsule 270 capsule 2 Sig: TAKE ONE (1) CAPSULE(S) BY MOUTH THREE TIMES A DAY (MORNING, NOON, AND EVENING). Authorizing Provider: RD SLADE Ordering User: MATTHEW TRENT 06/19/23 NOV not scheduled [facility] 2023-08-07 09:13:42 [facility] included Radiology contact and Duplex contact to schedule. Andrew [facility] 2023-07-27 08:21:37 Patient missed follow up appointment scheduled 07/26/23. Patient needing to complete venous duplex and CT ordered and reschedule follow up. Attempted to contact patient with no answer, Voicemail left at this time with clinic phone number and instructed patient to return call. Garcia RN [facility]
--- NOTE | 2024-06-29 11:32 | RAD REPORT ---
EXAM: CT brain without contrast HISTORY: DIZZINESS COMPARISON: None TECHNIQUE: Multiple contiguous axial images were obtained and a CT of the brain without contrast. Sag ittal and coronal reformats were performed. One or more of the following dose reduction techniques were used: Automated exposure control, adjust ment of the mA and/or kV according to patient size, and/or iterative reconstruction. FINDINGS: No evidence of hydrocephalus, intracranial hemorrhage, or extra-axial fluid collection. Mild brain atrophy with mild periventricular and deep white matter chronic microvascular ischemic ch anges present. No evidence of midline shift or areas of brain edema. The calvarium is intact. The visualized paranasal sinuses and mastoid air cells are essentially clear . IMPRESSION: No evidence of acute intracranial abnormality.
--- NOTE | 2024-06-29 11:55 | RAD REPORT ---
EXAMINATION: ONE VIEW CHEST XR CLINICAL INDICATION: dizziness TECHNIQUE: Frontal chest projection is submitted. Examination is limited by patient positioning and t echnique. COMPARISON: No prior exam. FINDINGS: The lungs are well inflated and clear. The heart is normal in size. No displaced fractures identified . IMPRESSION: No acute intrathoracic abnormalities.
[2024-06-29 12:07] LABS: Absolute Eosinophils 0.2 K/uL (0-0.5); Absolute Lymphocytes (CBC) 1.4 K/uL (0.7-4.9); Absolute Monocytes 0.6 K/uL (0.1-1.3); Absolute Neutrophil 6.8 K/uL (1.8-8.0); Basophils % 0.3 % (0-1.3); Eosinophils % 1.9 % (0-4.4); Hematocrit 35.9 % (36.0-45.0); Hemoglobin 11.8 g/dL (12.0-15.0); Lymphocytes % 15.3 % (15.3-44.8); MCH 30.5 pg (27.0-35.0); MCHC 32.7 g/dL (32.0-36.0); MCV 93.1 fL (80-100); MPV 8.6 fL (7.6-11.3); Monocytes % 6.9 % (3.3-12.3); Neutrophils % 75.6 % (41.7-73.7); Platelets 261 thou/uL (152-406); RBC Red Blood Cell Count 3.86 M/uL (3.86-4.86); Red Cell Distribution Width 13.4 % (12.1-15.2)
[2024-06-29 12:08] LABS: PT Prothrombin Time 10.6 SECONDS (9.4-12.5); Protime INR 0.94
[2024-06-29 12:24] LABS: Anion Gap 8.6 mEq/L (5.0-15.0); Potassium 3.6 mEq/L (3.5-5.1); Troponin High Sensitivity 6.7 pg/mL (<58.9)
--- NOTE | 2024-06-29 12:38 | ER ---
Nurse's Notes [facility] Name: Adrianne Recinos Age: 59 yrs Sex: Female : 1965 Arrival Date: 06/29/2024 Time: 10:35 Bed 15 Private MD: Diagnosis: Other peripheral vertigo Presentation: 06/29 11:04 Chief complaint: Patient states: Dizziness that has been ongoing since March. Today pt cm10 fell in the shower and hit back on tub, did not hit head. Pt had ECHO and ultrasound done with Dr. Marshall last week. Coronavirus screen: Client denies travel out of the [place] in the last 14 days. Ebola Screen: Patient denies travel to an Ebola-affected area in the 21 days before illness onset. No symptoms or risks identified at this time. Initial Sepsis Screen: Does the patient meet any 2 criteria? No. Patient's initial sepsis screen is negative. Does the patient have a suspected source of infection? No. Patient's initial sepsis screen is negative. Risk Assessment: Do you want to hurt yourself or someone else? Patient reports no desire to harm self or others. Onset of symptoms was June 29, 2024. 11:04 Method Of Arrival: Ambulatory cm10 11:04 Acuity: MODESTA 3 cm10 Triage Assessment: 11:07 General: Appears in no apparent distress. comfortable, Behavior is calm, cooperative. cm10 Neuro: No deficits noted. Level of Consciousness is awake, alert, obeys commands, Oriented to person, place, time, situation, Appropriate for age. Neuro: Reports dizziness. Respiratory: No deficits noted. Airway is patent Respiratory effort is even, unlabored, Respiratory pattern is regular, symmetrical. Musculoskeletal: Range of motion: intact in all extremities. Historical: - Allergies: 11:05 No Known Allergies; cm10 - Home Meds: 11:05 Mounjaro 5 mg/0.5 mL subcutaneous Pen Injector [Active]; Jardiance 10 mg oral tablet cm10 [Active]; clonazepam 0.5 mg Oral tablet [Active]; gabapentin 400 mg Oral capsule 3 times per day [Active]; Seroquel 300 mg Oral tablet every day at bedtime [Active]; vilazodone 20 mg oral tablet [Active]; nebivolol 2.5 mg oral tablet [Active]; Vitamin D Oral [Active]; diclofenac sodium 50 mg oral tablet, delayed release (enteric coated) [Active]; - PMHx: 11:05 Arthritis; Back pain; Depression; Diabetes - NIDDM; Hypertension; mood disorder; cm10 neuropathy; - Immunization history:: Adult Immunizations up to date. - Infectious Disease History:: Denies. - Social history:: Smoking status: Patient reports the use of cigarette tobacco products, denies chronic smoking, but will smoke occasionally. Screenin:02 [facility] ED Fall Risk Assessment (Adult) History of falling in the last 3 months, ph including since admission Yes- physiologic fall (2 pts) Confusion or Disorientation No (0 pts) Intoxicated or Sedated No (0 pts) Impaired Gait No (0 pts) Mobility Assist Device Used No (0 pt) Altered Elimination No (0 pt) Score/Fall Risk Level 0 - 2 = Low Risk Oriented to surroundings, Maintained a safe environment, Hourly rounding (assess needs \T\ fall precautionary measures) done. Abuse screen: Denies threats or abuse. Denies injuries from another. Nutritional screening: No deficits noted. Tuberculosis screening: No symptoms or risk factors identified. Assessment: 12:03 General: Appears in no apparent distress. comfortable, well groomed, Behavior is calm, ph cooperative, appropriate for age, Denies fever, feeling ill. Pain: Denies pain. Neuro: Level of Consciousness is awake, alert, obeys commands, Oriented to person, place, time, situation, Reports dizziness, since March. Cardiovascular: Capillary refill < 3 seconds in bilateral fingers Patient's skin is warm and dry. Respiratory: Airway is patent Respiratory effort is even, unlabored, Respiratory pattern is regular, symmetrical. GI: No signs and/or symptoms were reported involving the gastrointestinal system. Derm: Skin is pink, warm \T\ dry. Vital Signs: 11:04 BP 103 / 72; Pulse 77; Resp 16; Temp 97.7; Pulse Ox 100% ; Weight 53.98 kg; Height 5 cm10 ft. 4 in. ; Pain 0/10; 12:09 BP 141 / 86; Pulse 74; Resp 18; Pulse Ox 100% on R/A; ph 12:18 BP 134 / 86 Supine; Pulse 101; ph 12:18 BP 125 / 80 Sitting; Pulse 95; ph 12:18 BP 102 / 69 Standing; Pulse 79; ph 11:04 Body Mass Index 20.43 (53.98 kg, 162.56 cm) cm10 11:04 Pain Scale: Adult [facility] NIH Stroke Scale Scores: 11:05 NIHSS Score: [address] [facility] ED Course: 10:39 Patient arrived in ED. ra3 10:56 Diana Duarte FNP [facility] 7 10:56 Keo Love MD is Attending Physician. [facility] 11:05 Triage completed. cm10 11:08 Arm band placed on right wrist. Patient placed in waiting room. cm10 11:22 CT Head Brain wo Cont In Process Unspecified. EDMS 11:36 Leslie Garcia, RN is Primary Nurse. ph 11:47 XRAY Chest (1 view) In Process Unspecified. EDMS 12:00 Patient has correct armband on for positive identification. Bed in low position. Call light in reach. Side rails up X 1. cardiac monitor technician on. Pulse ox on. NIBP on. Door closed. Noise minimized. 12:03 Initial lab(s) drawn, by me, sent to lab. EKG done, by ED staff, reviewed by Diana HENSLEY. Inserted saline lock: 22 gauge in left antecubital area, using aseptic technique. Blood collected. Flushed with 10 mL NS. 12:08 No provider procedures requiring assistance completed. ph 13:15 IV discontinued, intact, bleeding controlled, No redness/swelling at site. Pressure ph dressing applied. Administered Medications: No medications were administered Medication: 12:03 VIS not applicable for this client. ph Outcome: 12:38 Discharge ordered by . [facility] 13:16 Patient left the ED. ph 13:16 Discharged to home ambulatory, with family, ph 13:16 Condition: good 13:16 Discharge instructions given to family, Instructed on discharge instructions, follow up and referral plans. Demonstrated understanding of instructions, follow-up care, NIH Stroke Scale - NIH Stroke Score Date: 06/29/2024 Time: 11:05 Total Score = 0 10. Dysarthria (speech clarity - read or repeat words) - 0(Normal) 11. Extinction and Inattention (visual/tactile/auditory/spatial/personal) - 0(No abnormality) 1a. Level of Consciousness (LOC) - 0(Alert) 1b. Level of Consciousness (LOC) (Month \T\ Age) - 0(Both) 1c. LOC Commands (Open \T\ Closes Eyes/Store Keeper) - 0(Both) 2. Best Gaze (Lateral Gaze Paresis) - 0(Normal) 3. Visual Field Loss - 0(No visual loss) 4. Facial Palsy - 0(Normal) 5a. Left Arm: Motor (10-second hold) - 0(No drift) 5b. Right Arm: Motor (10-second hold) - 0(No drift) 6a. Left Leg: Motor (5-second hold - always test supine) - 0(No drift) 6b. Right Leg: Motor (5-second hold - always test supine) - 0(No drift) 7. Limb Ataxia (finger/nose \T\ heel/almendarez - test with eyes open) - 0(Absent) 8. Sensory Loss (pinprick arms/legs/face) - 0(Normal) 9. Best Language: Aphasia (description/naming/reading) - 0(No aphasia) Initials: [facility] Signatures: Dispatcher [employer] Leslie Florence, RN RN Diana Duarte, HADOOP ADMIN HADOOP ADMIN [facility] Silvia Bentley, RN RN cm10 Emmie Rodriges ra3
--- NOTE | 2024-06-29 12:38 | EDPHYS ---
Physician Documentation [facility] Name: Adrianne Recinos Age: 59 yrs Sex: Female : 1965 Arrival Date: 06/29/2024 Time: 10:35 Bed 15 Private MD: ED Physician Keo Love HPI: 06/29 11:05 This 59 yrs old Female presents to ER via Ambulatory with complaints of Dizziness - jh7 Fall. 11:05 59-year-old female with a past medical history of hypertension, CKD, and diabetes jh7 presents to the ER post fall occurring this morning. The patient reports that she has been experiencing positional dizziness since March. She reports that due to the dizziness, she fell in the shower this morning. Denies hitting her head or loss of consciousness. She complains of mild upper back pain but states that the pain is almost resolved. Denies chest pain, shortness of breath, syncope, or any other symptoms.. Historical: - Allergies: 11:05 No Known Allergies; cm10 - Home Meds: 11:05 Mounjaro 5 mg/0.5 mL subcutaneous Pen Injector [Active]; Jardiance 10 mg oral tablet cm10 [Active]; clonazepam 0.5 mg Oral tablet [Active]; gabapentin 400 mg Oral capsule 3 times per day [Active]; Seroquel 300 mg Oral tablet every day at bedtime [Active]; vilazodone 20 mg oral tablet [Active]; nebivolol 2.5 mg oral tablet [Active]; Vitamin D Oral [Active]; diclofenac sodium 50 mg oral tablet, delayed release (enteric coated) [Active]; - PMHx: 11:05 Arthritis; Back pain; Depression; Diabetes - NIDDM; Hypertension; mood disorder; cm10 neuropathy; - Immunization history:: Adult Immunizations up to date. - Infectious Disease History:: Denies. - Social history:: Smoking status: Patient reports the use of cigarette tobacco products, denies chronic smoking, but will smoke occasionally. ROS: 11:05 Constitutional: Per HPI jh7 Exam: 11:05 Constitutional: This is a well developed, well nourished patient who is awake, alert, jh7 and in no acute distress. Head/Face: Normocephalic, atraumatic. Eyes: Pupils equal round and reactive to light, extra-ocular motions intact. Lids and lashes normal. Conjunctiva and sclera are non-icteric and not injected. Cornea within normal limits. Periorbital areas with no swelling, redness, or edema. ENT: Nares patent. No nasal discharge, no septal abnormalities noted. Tympanic membranes are normal and external auditory canals are clear. Oropharynx with no redness, swelling, or masses, exudates, or evidence of obstruction, uvula midline. Mucous membranes moist. Neck: Trachea midline, no thyromegaly or masses palpated, and no cervical lymphadenopathy. Supple, full range of motion without nuchal rigidity, or vertebral point tenderness. No Meningismus. Cardiovascular: Regular rate and rhythm with a normal S1 and S2. No gallops, murmurs, or rubs. Normal PMI, no JVD. No pulse deficits. Respiratory: Lungs have equal breath sounds bilaterally, clear to auscultation and percussion. No rales, rhonchi or wheezes noted. No increased work of breathing, no retractions or nasal flaring. Abdomen/GI: Soft, non-tender, with normal bowel sounds. No distension or tympany. No guarding or rebound. No evidence of tenderness throughout. Back: No spinal tenderness. No costovertebral tenderness. Full range of motion. Skin: Warm, dry with normal turgor. Normal color with no rashes, no lesions, and no evidence of cellulitis. MS/ Extremity: Pulses equal, no cyanosis. Neurovascular intact. Full, normal range of motion. Neuro: Awake and alert, GCS 15, oriented to person, place, time, and situation. Cranial nerves II-XII grossly intact. Motor strength 5/5 in all extremities. Sensory grossly intact. Cerebellar exam normal. Normal gait. Vital Signs: 11:04 BP 103 / 72; Pulse 77; Resp 16; Temp 97.7; Pulse Ox 100% ; Weight 53.98 kg; Height 5 cm10 ft. 4 in. ; Pain 0/10; 12:09 BP 141 / 86; Pulse 74; Resp 18; Pulse Ox 100% on R/A; ph 12:18 BP 134 / 86 Supine; Pulse 101; ph 12:18 BP 125 / 80 Sitting; Pulse 95; ph 12:18 BP 102 / 69 Standing; Pulse 79; ph 11:04 Body Mass Index 20.43 (53.98 kg, 162.56 cm) cm10 11:04 Pain Scale: Adult cm10 NIH Stroke Scale Scores: 11:05 NIHSS Score: 0 [facility] MDM: 10:57 Medical Screening Exam initiated [facility] 12:35 Differential diagnosis: cardiac arrhythmia, generalized weakness, head injury, [facility] hypovolemia, idiopathic dizziness, near-syncope, TIA, vertigo. Data reviewed: vital signs, nurses notes, lab test result(s), EKG, radiologic studies, CT scan, plain films. I considered the following discharge prescriptions or medication management in the emergency department Medications were administered in the Emergency Department. See MAR. Independent interpretation of the following test(s) in the Emergency Department EKG: See my EKG interpretation above X-Ray: My interpretation is no acute findings. Historians other than the Patient: Daughter/Son: daughter. Care significantly affected by the following chronic conditions: Diabetes, Hypertension. Counseling: I had a detailed discussion with the patient and/or guardian regarding the historical points, exam findings, and any diagnostic results supporting the discharge/admit diagnosis, the need for outpatient follow up, an ENT specialist, to return to the emergency department if symptoms worsen or persist or if there are any questions or concerns that arise at home. 06/29 11:11 Order name: Basic Metabolic Panel; Complete Time: 12:32 [facility] 06/29 11:11 Order name: CBC with Diff; Complete Time: 12:20 [facility] 06/29 11:11 Order name: NT PRO-BNP; Complete Time: 12:32 [facility] 06/29 11:11 Order name: PT-INR; Complete Time: 12:20 [facility] 06/29 11:11 Order name: Troponin HS; Complete Time: 12:32 [facility] 06/29 11:11 Order name: XRAY Chest (1 view); Complete Time: 11:56 [facility] 06/29 11:11 Order name: CT Head Brain wo Cont; Complete Time: 11:38 [facility] 06/29 11:11 Order name: Cardiac monitoring; Complete Time: 11:50 [facility] 06/29 11:11 Order name: EKG - Nurse/Tech; Complete Time: 11:50 [facility] 06/29 11:11 Order name: IV Saline Lock; Complete Time: 12:01 [facility] 06/29 11:11 Order name: Labs collected and sent; Complete Time: 12:01 [facility] 06/29 11:11 Order name: O2 Per Protocol; Complete Time: 11:50 [facility] 06/29 11:11 Order name: O2 Sat Monitoring; Complete Time: 11:50 [facility] 06/29 11:11 Order name: Orthostatics; Complete Time: 12:18 [facility] EC:44 Rate is 72 beats/min. Rhythm is regular. QRS [place] is Normal. [place] interval is normal. QRS [facility] interval is normal. QT interval is normal. No Q waves. T waves are Normal. ST Segment is depressed in lead I. Clinical impression: NSR w/ Non-specific ST/T Changes. Administered Medications: No medications were administered Disposition Summary: 06/29/24 12:38 Discharge Ordered Notes: Location: Home [facility] Problem: chronic [facility] Symptoms: are unchanged [facility] Condition: Stable [facility] Diagnosis - Other peripheral vertigo [facility] Followup: [facility] - With: Private Physician - When: 2 - 3 days - Reason: Recheck today's complaints Discharge Instructions: - Discharge Summary Sheet [facility] - Vertigo [facility] Forms: - Medication Reconciliation Form [facility] - Patient Portal Instructions [facility] - Leadership Thank You Letter [facility] Prescriptions: - Meclizine 25 mg Oral Tablet - take 1 tablet ORAL route every 8 hours As needed; 30 tablet; Refills: 0, [facility] Product Selection Permitted NIH Stroke Scale - NIH Stroke Score Date: 06/29/2024 Time: 11:05 Total Score = 0 10. Dysarthria (speech clarity - read or repeat words) - 0(Normal) 11. Extinction and Inattention (visual/tactile/auditory/spatial/personal) - 0(No abnormality) 1a. Level of Consciousness (LOC) - 0(Alert) 1b. Level of Consciousness (LOC) (Month \T\ Age) - 0(Both) 1c. LOC Commands (Open \T\ Closes Eyes/Instructor Of Education) - 0(Both) 2. Best Gaze (Lateral Gaze Paresis) - 0(Normal) 3. Visual Field Loss - 0(No visual loss) 4. Facial Palsy - 0(Normal) 5a. Left Arm: Motor (10-second hold) - 0(No drift) 5b. Right Arm: Motor (10-second hold) - 0(No drift) 6a. Left Leg: Motor (5-second hold - always test supine) - 0(No drift) 6b. Right Leg: Motor (5-second hold - always test supine) - 0(No drift) 7. Limb Ataxia (finger/nose \T\ heel/almendarez - test with eyes open) - 0(Absent) 8. Sensory Loss (pinprick arms/legs/face) - 0(Normal) 9. Best Language: Aphasia (description/naming/reading) - 0(No aphasia) Initials: jh7 Signatures: Dispatcher [employer] EDMS Diana Duarte, WOODWORKING SHOP LABORER WOODWORKING SHOP LABORER jh7 Silvia Bentley, RN RN cm10 Corrections: (The following items were deleted from the chart) 11:12 11:12 BASIC METABOLIC PANEL+C.LAB.BRZ ordered. EDMS EDMS 11:12 11:12 CBC+H.LAB.BRZ ordered. EDMS EDMS 11:12 11:12 PROBNP+C.LAB.BRZ ordered. EDMS EDMS 11:12 11:12 PROTIME (+INR)+COAG.LAB.BRZ ordered. EDMS EDMS 11:12 11:12 Troponin High Sensitivity+C.LAB.BRZ ordered. EDMS EDMS 11:12 11:12 Chest Single View+RAD.RAD.BRZ ordered. EDMS EDMS 11:12 11:12 Head Brain Wo Cont+CT.RAD.BRZ ordered. EDMS EDMS
[2024-06-29 15:01] VITALS: TEMP 97.7; O2SAT 100
[2024-06-29 15:13] VITALS: BP 102/69
--- NOTE | 2024-07-02 11:42 | EKG ---
Test Date: 2024-06-29 Test Time: 11:44:48 Card Fixer: AM MEASUREMENT RESULTS: Intervals: Rate: 72 SD: 196 QRSD: 108 QT: 386 QTc: 422 [place]: P: 63 SD: 196 QRS: -25 T: 65 INTERPRETIVE STATEMENTS: Normal sinus rhythm Septal infarct, age undetermined Abnormal ECG Compared to ECG 11/09/2022 17:28:57 Myocardial infarct finding now present Left-axis deviation no longer present Left ventricular hypertrophy no longer present Early repolarization no longer present Electronically Signed On 07-02-24 11:35:21 CLINICAL RESEARCH ASSOCIATE by Ronan Sotomayor
== END 2024-06-29 13:16 | disposition home or self-care (01) ==
LOC: ER 10:35
DX: H81.391 Other peripheral vertigo, right ear (principal); E11.9 Type 2 diabetes mellitus without complications; I10 Essential (primary) hypertension; F17.210 Nicotine dependence, cigarettes, uncomplicated
CPT/HCPCS: 36415; 70450; 71045; 80048; 83880; 84484; 85025; 85610; 93005; 99284